=== PATIENT | female | born 1940 | race Caucasian/White ===

== ENCOUNTER → 2024-07-10 | Emergency (ER) | payer OTHER ==
[~2024-07-10] VITALS: Ht 165.1 cm; Wt 56.7 kg
[~2024-07-10] MED LIST: 0.9 % SODIUM CHLORIDE 1,000 ML IV ONE; ACETAMINOPHEN 500 MG GEL..CAP PO ONE; BENADRYL25 MG PO; BREO ELLIPTA 21 EACH IH; GUAIFENESIN 200 MG/10 ML BLIST.PACK PO ONE; LEVALBUTEROL HCL 0.63 MG/3 ML SOLUTION IH ONE; LEVALBUTEROL HCL 1.25 MG/3 ML SOLUTION IH SCH; MEDROL4 MG PO
[2024-07-10 15:29] LABS: BASO % 0.6 % (0.1-1.2); EOS # 0.03 (0.04-0.54); EOS % 0.5 % (0.7-7.0); LYMPH # 2.23 (1.18-3.74); LYMPH % 35.1 % (19.3-53.1); MEAN CORPUSCULAR HEMOGLOBIN 37.4 pg (25.6-32.2); MONO # 0.55 (0.24-0.82); MONO % 8.6 % (4.7-12.5); NEUT # 3.47 (1.56-6.13); NEUT % 54.6 % (34.0-71.1); PLATELET COUNT 544 K/uL (163-369); RED BLOOD COUNT 2.06 M/uL (3.93-5.22); RED CELL DISTRIBUTION WIDTH 21.1 % (11.6-14.4)
[2024-07-10 15:37] LABS: HEMOGLOBIN 7.7 g/dL (11.2-15.7)
[2024-07-10 16:21] LABS: INFLUENZA A AG NEGATIVE (NEGATIVE)
[2024-07-10 16:27] LABS: COVID-19 AG POSITIVE (NEGATIVE)
== END | disposition left against medical advice (07) ==
LOC: ER 12:10
PROVIDERS: General Practice
DX: U07.1 COVID-19 (principal); J44.9 Chronic obstructive pulmonary disease, unspecified